=== PATIENT | male | born 1945 | race Caucasian/White ===

== ENCOUNTER 2020-08-01 19:54 | Inpatient (IN) | payer MEDICARE, OTHER ==
[2020-08-01] MEDS ORDERED: Acetaminophen 325 MG TAB PO PRN (21:30)
[2020-08-01] MEDS ORDERED: Nitroglycerin 0.4 MG TAB (25 Tab Bottle) SL PRN (21:30)
[2020-08-01 21:36] LABS: CKMB 4.3 ng/mL (0-6.6)
[2020-08-01] MEDS ORDERED: hydrALAZINE 20 MG/ML VIAL SLOW IVP PRN (21:36)
[2020-08-01] MEDS ORDERED: HumaLOG 300 UNITS/3 ML VIAL SC PRN (21:36)
[2020-08-01 22:23] LABS: Hemoglobin A1c 5.9 % (4.0-6.0)
[2020-08-01] MEDS ORDERED: Aspirin 325 MG TAB PO SCH (22:30)
[2020-08-02 00:56] LABS: Cardiac Risk 3.6 (Less than 4.5)
[2020-08-02 01:03] LABS: Critical Call Chem Troponin I RESULT DECREASING
[2020-08-02 02:38] VITALS: BMI 33.0
[2020-08-02] MEDS: Ondansetron PF 4 MG/2 ML Vial IVP PRN ×3 (05:17→16:44)
[2020-08-02] MEDS ORDERED: Scopolamine 1.5 mg/72 hour Patch TD SCH (05:45)
[2020-08-02] MEDS: Metoprolol Tartrate 25 MG TAB PO SCH ×2 (08:27→20:29)
[2020-08-02] MEDS ORDERED: Metoprolol Tartrate 25 MG TAB PO SCH (09:00)
[2020-08-02] MEDS ORDERED: Enoxaparin Sodium 40 MG/0.4 ML SYRINGE SC SCH (09:00)
[2020-08-02] MEDS ORDERED: Enoxaparin Sodium 120 MG/0.8 ML SYRINGE SC SCH ×2 (09:00)
[2020-08-02] MEDS ORDERED: Enoxaparin Sodium 80 MG/0.8 ML SYRINGE SC SCH (09:00)
[2020-08-02] MEDS: Aspirin 325 mg Enteric Coated Tablet PO SCH (10:07)
[2020-08-02 13:56] LABS: Hemoglobin 16.2 g/dL (14.0-18.0); Mean Corpuscular HGB CONC 32.4 g/dL (32.0-36.0); Mean Corpuscular Hemoglobin 30.6 pg (27.0-31.0); Mean Corpuscular Volume 94.3 fL (78.0-98.0); Mean Platelet Volume 7.7 fL (7.4-10.4); Platelet Count 174 thou/uL (130-400); RBC Distribution Width 11.5 % (11.5-14.5); White Blood Cell (WBC) Count 13.5 thou/uL (4.8-10.8)
[2020-08-02 13:57] LABS: Band 8 % (5-11); Eosinophils 2 % (0-10); Lymphocytes 23 % (21-51); MDiff Complete? YES; Monocytes 7 % (0-10); Neutrophil 50 % (42-75); Platelet Morphology Comment Appears Adequate; RBC Morphology Normal; Reactive Lymphocytes 10 % (0-10)
[2020-08-02 14:07] LABS: Albumin 3.2 g/dL (3.4-4.8); Calcium 8.6 mg/dL (7.8-10.44); Chloride 109 mmol/L (98-107); Globulin 3.4 g/dL (2.4-3.5); Glucose 113 mg/dL (83-110); Potassium 4.4 mmol/L (3.5-5.1); Protein, Total 6.6 g/dL (5.8-8.1); Sodium 140 mmol/L (136-145)
[2020-08-02 14:13] LABS: Alkaline Phosphatase 71 U/L (40-110)
[2020-08-02 14:14] LABS: ALT (SGPT) 22 U/L (8-55); AST (SGOT) 22 U/L (5-34); BUN (Urea Nitrogen) 37 mg/dL (8.4-25.7); BUN/Creatinine Ratio 34.91; Calc. Creatinine Clearance 97 mL/min (70-130); Phosphorus 3.9 mg/dL (2.3-4.7)
[2020-08-02 14:27] LABS: Critical Call Chem Troponin I RESULT DECREASING; Troponin I 0.329 ng/mL (< 0.028)
[2020-08-02 15:55] LABS: Anion Gap 15 mmol/L (10-20); Bilirubin, Total 1.6 mg/dL (0.2-1.2); Carbon Dioxide 20 mmol/L (23-31)
[2020-08-03] MEDS: Ondansetron PF 4 MG/2 ML Vial IVP PRN ×2 (07:21→21:21)
[2020-08-03] MEDS ORDERED: Non-Formulary Item 1 EACH (Losartan Potassium [Cozaar] 50 MG Tablet) PO SCH (09:00)
[2020-08-03] MEDS: Pregabalin 75 MG CAP PO SCH ×2 (09:22→21:09)
[2020-08-03] MEDS: Aspirin 325 mg Enteric Coated Tablet PO SCH (09:22)
[2020-08-03] MEDS: Losartan 25 MG TAB PO SCH ×2 (09:23→21:09)
[2020-08-03] MEDS: Metoprolol Tartrate 25 MG TAB PO SCH ×2 (12:53→21:09)
[2020-08-03] MEDS: Enoxaparin Sodium 40 MG/0.4 ML SYRINGE SC SCH (21:10)
[2020-08-04] MEDS: Enoxaparin Sodium 40 MG/0.4 ML SYRINGE SC SCH (09:28)
[2020-08-04] MEDS: Aspirin 325 mg Enteric Coated Tablet PO SCH (09:29)
[2020-08-04] MEDS: Pregabalin 75 MG CAP PO SCH (09:29)
[2020-08-04] MEDS: Ondansetron PF 4 MG/2 ML Vial IVP PRN (09:30)
[2020-08-04] MEDS ORDERED: Regadenoson 0.4 MG/5 ML SYRINGE ONE (11:27)
[2020-08-04 11:52] VITALS: BP 119/71; TEMP 97.8
[2020-08-04] MEDS: Losartan 25 MG TAB PO SCH (12:26)
[2020-08-04] MEDS: Metoprolol Tartrate 25 MG TAB PO SCH (12:26)
== END 2020-08-04 16:38 | disposition home or self-care (01) | DRG 312 ==
LOC: ERS 19:54 → 2SE 21:30
PROVIDERS: ADMIT Internal Medicine; ATTEND Internal Medicine
DX: I95.1 Orthostatic hypotension (principal); I24.8 Other forms of acute ischemic heart disease; I10 Essential (primary) hypertension; Z20.822 Contact with and (suspected) exposure to COVID-19; M54.2 Cervicalgia; E11.9 Type 2 diabetes mellitus without complications; G89.4 Chronic pain syndrome; R32 Unspecified urinary incontinence; I25.10 Atherosclerotic heart disease of native coronary artery without angina pectoris; Z87.891 Personal history of nicotine dependence; Z85.46 Personal history of malignant neoplasm of prostate; Z79.84 Long term (current) use of oral hypoglycemic drugs
CPT/HCPCS: 36415; 36416; 78452; 80053; 80061; 80069; 82533; 82553; 83036; 84443; 84484; 85007; 85027; 93005; 93010; 93017; 93306; 93880; A9500; J1650; J2405; J2785